=== PATIENT | female | born 1955 | race Caucasian/White ===

== ENCOUNTER 2017-06-04 07:22 | Emergency (ER) | payer OTHER ==
[2017-06-04 07:37] VITALS: TEMP 98.4
[2017-06-04] MEDS ORDERED: KETOROLAC 30 MG/1 ML SDV IVP ONE (07:37)
[2017-06-04] MEDS ORDERED: METOCLOPRAMIDE 10 MG/2 ML VIAL IVP ONE (07:37)
[2017-06-04] MEDS ORDERED: DEXAMETHASONE 10 MG/ML VIAL IVP ONE (07:38)
[2017-06-04] MEDS ORDERED: NS 1,000 ML IV ONE (07:39)
[2017-06-04] MEDS ORDERED: MAGNESIUM SULF 1 GM/DEXTROSE 100 ML IV ONE (07:39)
--- NOTE | 2017-06-04 08:16 | EDPHY ---
H & P Stated Complaint: BENITO since Sunday Time Seen by Provider: 06/04/17 07:35 HPI/ROS: This patient complains of ongoing migraine for 6 days duration. The location is left hemicranial, currently 8/10 pressure feeling similar to previous migraines. Peak intensity is 10/10. The pain worsens with movement. She has associated photophobia and nausea but no vomiting. She states that she has had some transient relief from sumatriptan-last dose yesterday but the headache recurs after the pharmacological effect of the sumatriptan resolved. She notes no other exacerbating or alleviating factors. She is accompanied by her . He drove her in by private vehicle. She has had no medications this morning. ROS: No fevers or chills. No other constitutional symptoms. HEENT: No recent URI symptoms or other complaints. Neuro: No focal numbness tingling or weakness. She reports a dull factor hallucination of a smoke smell that symptoms proceeded her migraines and she had that prior to this migraine. Pulmonary: No significant cough shortness of breath Cardiovascular: No chest pain. No heart palpitations or lightheadedness. GI: Nausea but no vomiting. No abdominal pain : No complaints Integumentary: No skin rash Complete ROS is otherwise negative. Source: Patient Exam Limitations: No limitations - Personal History Current Tetanus/Diphtheria Vaccine: Yes Tetanus Vaccine Date: < 10 YEARS - Medical/Surgical History PMH: Migraines Hypertension Hx Asthma: No Hx Chronic Respiratory Disease: No Hx Diabetes: No Hx Cardiac Disease: No Hx Renal Disease: No Hx Cirrhosis: No Hx Alcoholism: No Hx HIV/AIDS: No Hx Splenectomy or Spleen Trauma: No Other PMH: migraines, hysterectomy, C4/5 fusion, depression, acl - Social History Smoking Status: Never smoked Alcohol Use: Rarely Drug Use: Marijuana (She occasionally uses marijuana but reports that it tends to trigger migraines for her.) - Physical Exam Exam: Physical exam: Vital signs are normal General: Patient is in no acute distress. HEENT: Is no external evidence of trauma on exam. Nose atraumatic. Ears: Clear bilaterally with no hemotympanum. Oropharynx: No dental trauma or malocclusion. No intraoral lacerations. Eyes: Pupils are equal and reactive to light. Extraocular motions are intact. Optic fundi: Clear with no papilledema or hemorrhage. Neck: Trachea is midline with no stridor. The patient has no midline neck tenderness and retains a full range of motion without increase in pain. Lungs: Clear to auscultation bilaterally Cardiac: Regular rate and rhythm no murmur gallop or rub. Chest: Nontender. Abdomen: Soft nontender no organomegaly Back: Nontender Extremities: Atraumatic Neuro: GCS of 15. Cranial nerves II through XII intact. Cerebellar exam is normal as judged by symmetric rapid hand movements bilaterally. No pronator drift. No sensory or motor deficits are appreciated. Initial differential diagnosis: Migraine headache, tension headache, intracranial lesion or bleed, doubt MEDICAL CHIEF TECHNICIAN infection Constitutional: Initial Vital Signs Temperature (C) 36.9 C 06/04/17 07:28 Heart Rate 74 06/04/17 07:28 Respiratory Rate 20 06/04/17 07:28 Blood Pressure 147/90 H 06/04/17 07:28 O2 Sat (%) 98 06/04/17 07:28 O2 Delivery Mode Room Air Allergies/Adverse Reactions: No Known Allergies Allergy (Verified 06/04/17 07:32) Home Medications: Medication Instructions Recorded Aspirin 06/04/17 Atenolol 06/04/17 Lisinopril 06/04/17 Rizatriptan Benzoate [Maxalt] 5 - 10 mg PO Q2 PRN #12 tab 06/04/17 Sumatriptan 06/04/17 Medical Decision Making ED Course/Re-evaluation: IV normal saline bolus Reglan and Benadryl IV Toradol IV Decadron IV Magnesium 1 g IV with relief down to 1/10 discomfort. Discussion: This patient with long history of migraines responded well to migraine specific medication and has no red flag findings on history or exam to suggest MEDICAL CHIEF TECHNICIAN infection, intracranial bleed or other complicating factors. She does understand the need to return to the emergency department if she develops significant change in her symptoms or recurrence of symptoms despite treatment plan. She has been on sumatriptan for a long time and requests a different medication in the same class. Will try her on Maxalt - Data Points Medications Given: Discontinued Medications Dexamethasone (Decadron Injection) 10 mg IVP EDNOW ONE Stop: 06/04/17 07:39 Last Admin: 06/04/17 08:10 Dose: 10 mg Diphenhydramine HCl (Benadryl Injection) 25 mg IVP EDNOW ONE Stop: 06/04/17 07:38 Last Admin: 06/04/17 08:11 Dose: 25 mg Magnesium Sulfate/Dextrose (Magnesium Sulf 1 Gm (Premix)) 100 mls @ 100 mls/hr IV EDNOW ONE Stop: 06/04/17 08:38 Last Admin: 06/04/17 08:11 Dose: 100 mls Sodium Chloride (Ns) 1,000 mls @ 0 mls/hr IV EDNOW ONE; Wide Open PRN Reason: Protocol Stop: 06/04/17 07:40 Last Admin: 06/04/17 07:58 Dose: 1,000 mls Ketorolac Tromethamine (Toradol) 15 mg IVP EDNOW ONE Stop: 06/04/17 07:38 Last Admin: 06/04/17 08:08 Dose: 15 mg Metoclopramide HCl (Reglan Injection) 10 mg IVP EDNOW ONE Stop: 06/04/17 07:38 Last Admin: 06/04/17 08:04 Dose: 10 mg Departure - Departure Disposition: Home, Routine, Self-Care Clinical Impression: Migraine Qualifiers: Migraine type: with aura Status migrainosus presence: with status migrainosus Intractability: not intractable Qualified Code(s): G43.101 - Migraine with aura , not intractable, with status migrainosus Condition: Good Instructions: Migraine Headache (ED) Additional Instructions: Diagnosis: Migraine headache Plan: Try Maxalt for any recurrent migraines if needed. Follow up with primary care physician or neurologist for any ongoing symptoms. Return for any significant worsening of your symptoms despite the treatment plan Referrals: RICHARD FARLEY [Primary Care Provider] - As per Instructions
[2017-06-04 08:35] VITALS: BP 152/69; PULSE 72; RESP 16; O2SAT 97
== END 2017-06-04 09:22 | disposition home or self-care (01) ==
LOC: CED 07:22
DX: G43.101 Migraine with aura, not intractable, with status migrainosus (principal); I10 Essential (primary) hypertension; E86.9 Volume depletion, unspecified; Z79.82 Long term (current) use of aspirin
CPT/HCPCS: 96365; J1100; J1200; J1885; J2765; J3475